=== PATIENT | female | born 1950 ===

== ENCOUNTER 2023-02-10 08:09 | Day surgery (SDC) | payer OTHER ==
[2023-02-08 15:17] VITALS: BMI 39.5
[2023-02-10] MEDS ORDERED: Ipratropium/Albuterol 3 ML NEB NEB SCH (08:49)
[2023-02-10] MEDS ORDERED: PROPOFOL 20 ML ONE ×2 (10:26→10:29)
== END 2023-02-10 11:05 | disposition home or self-care (01) ==
LOC: CSHSDC 08:09
PROVIDERS: ATTEND Internal Medicine Gastroenterology
PROC: 0DB58ZX Excision of Esophagus, Via Natural or Artificial Opening Endoscopic, Diagnostic (ICD-10-PCS; principal; 2023-02-10)
PROC: 0DB68ZX Excision of Stomach, Via Natural or Artificial Opening Endoscopic, Diagnostic (ICD-10-PCS; 2023-02-10)
DX: K21.00 Gastro-esophageal reflux disease with esophagitis, without bleeding (principal); K44.9 Diaphragmatic hernia without obstruction or gangrene; K29.70 Gastritis, unspecified, without bleeding; R05.9 Cough, unspecified; I10 Essential (primary) hypertension; E78.5 Hyperlipidemia, unspecified; E66.9 Obesity, unspecified
CPT/HCPCS: 88305; 94640; J2704; J7611